=== PATIENT | male | born 1965 | race Two or more races ===

== ENCOUNTER 2016-12-28 14:16 | Emergency (ER) | payer MEDICAID ==
[~2016-12-28] VITALS: Ht 165.1 cm; Wt 59.0 kg
[~2016-12-28 14:16] MED LIST: AFRIN NASAL SPR30 ML NASAL; CEPHALEXIN500 MG ORAL; IBUPROFEN600 MG ORAL; NORCO 5-325 TA1 EAC1 ORAL
[2016-12-28 14:31] VITALS: BP 136/56
--- NOTE | 2016-12-28 14:36 | Emergency Room Report ---
History of Present Illness General Chief Complaint: Wound Recheck/Suture Removal Source: Patient Present Illness HPI 51 YO Male presents to the ED c/o sam in the left side of his scalp that need to be removed s/p wound closure 10 days ago. denies erythema, d/c. denies fevers, chills, or bleeding. pt. states he is UTD with tetanus. Denies CP, Palpitations, LOC, AMS, dizziness, Changes in Vision, Sensation, paresthesias, or a sudden severe headache. Allergies: Coded Allergies: PENICILLINS (Verified Allergy, Unknown, 12/17/16) Patient History Past Medical History: see triage record Past Surgical History: none Pertinent Family History: none Immunizations: UTD Reviewed Nursing Documentation: PMH: Agreed, PSxH: Agreed Nursing Documentation-PMH Past Medical History: No History, Except For Hx Hypertension: Yes Hx Diabetes: Yes Review of Systems All Other Systems: negative except mentioned in HPI Physical Exam Vital Signs Date Time Temp Pulse Resp B/P (MAP) Pulse Ox O2 Delivery O2 Flow Rate FiO2 12/28/16 14:21 97.9 72 18 136/56 9 Room Air Sp02 EP Interpretation: reviewed, normal General Appearance: no apparent distress, alert, GCS 15, non-toxic Head: normocephalic, atraumatic Eyes: bilateral eye normal inspection, bilateral eye PERRL ENT: hearing grossly normal, normal voice Neck: full range of motion Respiratory: lungs clear, normal breath sounds, speaking full sentences Cardiovascular #1: regular rate, rhythm Musculoskeletal: back normal, gait/station normal, normal range of motion, non- tender Neurologic: alert, oriented x3, responsive, motor strength/tone normal, sensory intact, normal gait, speech normal Psychiatric: judgement/insight normal, memory normal, mood/affect normal Skin: normal color, no rash, warm/dry, well hydrated, wd healing/no infection noted - left parietal scalp, there are [address], no evidence of infection. Medical Decision Making PA Attestation Dr. Pace is my supervising Physician whom patient management has been discussed with. Diagnostic Impression: Primary Impression: Encounter for removal of sutures ER Course Pt. presents to the ED c/o sam in the left side of his scalp that need to be removed s/p wound closure 10 days ago. denies erythema, d/c. Ddx considered but are not limited to laceration, tendon injury, cellulitis, dehiscence. Vital signs: are WNL, pt. is afebrile H&PE are most consistent with: healed laceration of the left side of the scalp , no evidence of infection ORDERS: none required at this time, the diagnosis is clinical ED INTERVENTIONS: - 6 Sam removed. DISCHARGE: At this time pt. is stable for d/c to home. Will provide printed patient care instructions, and any necessary prescriptions. Care plan and follow up instructions have been discussed with the patient prior to discharge. Last Vital Signs Date Time Temp Pulse Resp B/P (MAP) Pulse Ox O2 Delivery O2 Flow Rate FiO2 12/28/16 14:31 97.9 72 18 136/56 99 Room Air Disposition: HOME, SELF-CARE Condition: Stable Scripts Bacitracin/Polymyxin B Sulfate (BACITRACIN-POLYMYXIN OINTMENT) 28.35 Gm Oint...g. 1 APPLIC TP BID, #28.3 GM Prov: Breanna Hall 12/28/16 Patient Instructions: Wound Closure Removal Additional Instructions: Take any previously prescribed medications as directed. Follow up with a Primary Care Provider in 3-5 days, even if your symptoms have resolved. --Please review list of primary care clinics, if you do not already have a primary care provider Return sooner to ED if new symptoms occur, or current symptoms become worse. - Please note that this Emergency Department Report was dictated using Mobile [employer], [employer] general technology software, occasionally this can lead to erroneous entry secondary to interpretation by the dictation equipment. Breanna Hall Dec 28, 2016 14:36
[2016-12-28] MEDS ORDERED: BACITRACIN-P28.35 GM TP (14:37)
[2016-12-28 14:49] VITALS: BP 136/56
== END 2016-12-28 14:49 | disposition home or self-care (01) ==
LOC: EMR 14:44
DX: Z48.02 Encounter for removal of sutures (principal); Z88.0 Allergy status to penicillin; I10 Essential (primary) hypertension; E11.9 Type 2 diabetes mellitus without complications
CPT/HCPCS: 99281